=== PATIENT | female | born 1995 | race Caucasian/White ===

== ENCOUNTER → 2016-08-11 | Outpatient (CLI) | payer BC ==
[~2016-08-11] MED LIST: AMPH10TA2 PO; AMPH30CA3 PO; CEPH500C2 PO; HYDR-5688 PO; QVRINH80 INH; VNTHFA/IN INH
--- NOTE | 2016-08-11 12:41 | DIAGNOSTIC IMAGING REPORT ---
RIGHT FIRST TOE 3 VIEWS HISTORY: BIG TOE PAIN, R/O SESAMOID FRACTURE Right COMPARISON: None. FINDINGS: There is no fracture or dislocation. Soft tissues are unremarkable. No radiopaque foreign bodies. The sesamoid bones at the first metatarsal head appear to be intact. IMPRESSION: No fractures. Electronically signed by: Jonathon Tate M.D. 08/11/2016 12:40 PM Dictated Date/Time: 08/11/2016 12:39 PM
== END | disposition home or self-care (01) ==
LOC: C.RAD1850 12:27
PROVIDERS: ATTEND Family Medicine
DX: M79.676 Pain in unspecified toe(s) (principal)

== ENCOUNTER → 2016-08-13 | Outpatient (CLI) | payer BC | END | disposition home or self-care (01) | LOC: C.RDSM 13:40 | PROVIDERS: ATTEND Orthopaedic Surgery Sports Medicine | DX: R52 Pain, unspecified (principal) ==